=== PATIENT | female | born 1980 | race Caucasian/White ===

== ENCOUNTER → 2017-11-27 | Outpatient (CLI) | payer OTHER ==
[2015-06-22 09:33] VITALS: BMI 27.5
[~2017-11-27] MED LIST: ALBU8.5H IH; ALPR-434 PO; BENZ200C15 PO; CEFD300C35 PO; CODE118S5 PO; DICL100G39; DIPH-740 PO; EPIN1AMP IM; IBUP800T37 PO; LOR5/325 PO; ONDA-2 PO; OXYC-865 PO; PER PO; PRE5 PO; PRED20TA6 PO; SULF-198 PO; ZOLP-1 PO
--- NOTE | 2017-11-27 17:53 | RADIOLOGY IMAGING REPORT ---
[place]AC[place] [facility] [place] NAME: Farida Rayo : 1980 MR: [id number] V: [id number] EXAM DATE: ORDERING PHYSICIAN: TRINH RACSON TECHNOLOGIST: Location: [facility] Patient: Farida Rayo : 1980 Visit/Account:[id number] Date of Sevice: 11/27/2017 EXAMINATION: VENOUS DOPP LOW RIGHT EXTREMITY COMPARISON: None Available HISTORY: Right lower extremity pain. FINDINGS: Standard right lower extremity Doppler ultrasound with color flow and spectral analysis is performed. The common femoral, femoral, and popliteal veins are widely patent and compress appropriately. The v isualized calf veins and the proximal greater saphenous vein are patent. No popliteal fluid collection. IMPRESSION: No right lower extremity deep venous thrombosis. Report Dictated By: Will Eric MD at 11/27/2017 5:47 PM Report E-Signed By: Will Eric MD at 11/27/2017 5:49 PM WSN:[id number]
== END ==
LOC: US 16:35
PROVIDERS: ATTEND Nurse Practitioner Family
DX: M79.661 Pain in right lower leg (principal)

== ENCOUNTER 2018-02-07 18:35 | Emergency (ER) | payer OTHER ==
[2015-06-22 09:33] VITALS: Wt 88.0 kg
[2018-02-07] MEDS ORDERED: methylPREDNIS SUCC 125 MG/2ML IVP ONE (18:40)
[2018-02-07] MEDS ORDERED: NS(*) 0.9% 1000 ML BAG 1,000 ML IV ONE (18:40)
[2018-02-07] MEDS ORDERED: FAMOTIDINE(*) 20MG/50ML PREMIX 50 ML IVPB ONE (18:40)
[2018-02-07] MEDS ORDERED: diphenhydrAMINE 50 MG/ML VIAL IVP ONE (18:40)
--- NOTE | 2018-02-07 18:41 | ER Report ---
History and Physical Time Seen By MD: 18:38 HPI/ROS CHIEF COMPLAINT: allergic reaction HISTORY OF PRESENT ILLNESS: This is a 37 year old female. She has tree nut allergy. Ate some pine nuts without realizing these were nuts and has tightening in her throat and itchiness and redness in upper chest neck area. Has epinephrine pen, but has not used it, came early to try and avoid having to use it. Allergies: Coded Allergies: warfarin (Verified Allergy, Severe, RASH ALL OVER, 02/07/18) omeprazole (Verified Allergy, Intermediate, RASH, 02/07/18) metoclopramide (Verified Allergy, Mild, RASH, 02/07/18) pineapple (Verified Allergy, Mild, 02/07/18) tree nut (Verified Allergy, Unknown, 02/07/18) clindamycin (Verified Adverse Reaction, Severe, SEVERE STOMACH CRAMPS AND NAUSEA, 02/07/18) erythromycin base (Verified Adverse Reaction, Severe, STOMACH, NAUSEA AND VOMITING, 02/07/18) metronidazole (Verified Adverse Reaction, Severe, STOMACH CRAMPS AND NAUSEA, 02/07/18) adhesive (Verified Adverse Reaction, Mild, RASH IF IT IS ON TOO LONG, 02/07/18) Uncoded Allergies: CHEAP METALS (Adverse Reaction, Mild, RASH, 06/15/15) Home Meds Active Scripts Ibuprofen (IBUPROFEN) 800 Mg Tablet, 800 MG PO Q8H PRN for PAIN, #30 TAB 0 Refills Prov:YELENA DE LEON MD 06/22/15 Reported Medications Butalb/Acetaminophen/Caffeine (FIORICET 50-300-40) 1 Each Capsule, 1-2 EACH PO Q4H, CAPSULE 02/07/18 Zolpidem Tartrate (AMBIEN) 5 Mg Tablet, 1 TAB PO QHS, TAB 01/23/17 Alprazolam (XANAX) 1 Mg Tablet, 1 TAB PO QHS, TAB once or twice per month 06/15/15 Epinephrine HCl/Pf (Epinephrine 1 mg/ml Ampul) 1 Mg/1 Ml Ampul, 0.3 MG IM ONCE PRN for ALLERGY SYMPTOMS PRESCRIBED FOR NUT ALLERGY, EPI PEN, HAS NEVER HAD TO USE 06/15/15 Reviewed Nurses Notes: Yes Hx Smoking: No Smoking Status: Never Smoker Exposure to Second Hand Smoke?: No Hx Substance Use Disorder: No Hx Alcohol Use: No Constitutional Vital Sign - Last 24 Hours 02/07/18 02/07/18 02/07/18 02/07/18 18:35 18:42 18:45 18:50 Temp 98.3 Pulse ??? 87 91 Resp 16 B/P (MAP) 135/84 (101) 135/84 Pulse Ox 97 97 O2 Delivery Room Air 02/07/18 02/07/18 02/07/18 02/07/18 19:05 19:20 19:25 19:40 Pulse 76 76 77 ??? Pulse Ox 98 99 99 Intake and Output 02/07/18 02/07/18 02/08/18 15:00 23:00 07:00 Intake Total 1050 ml Balance 1050 ml Physical Exam General Appearance: The patient is alert, has no immediate need for airway protection and no current signs of toxicity. Eyes: Pupils equal and round no injection. ENT: Normal oral mucosa. Moist mucous membranes. Normal posterior oropharynx, without swelling. No tongue or lip swelling. Neck: Neck is supple and non tender. Respiratory: Chest is non tender, lungs are clear to auscultation. Cardiac: regular rate and rhythm Skin: Has some redness around the neck and chest area, no definitive hives. DIFFERENTIAL DIAGNOSIS: After history and physical exam differential diagnosis was considered for allergic reaction. Medical Decision Making ED Course/Re-evaluation Clinical Indication for ER IV: Hydration, IV Access ED Course Improved with IV medications (Solu-Medrol 125mg IV, Benadryl 25mg IV, and Pepcid 20mg IV) as well as a liter of normal saline. Prednisone 40mg oral dose given and see instructions below. Decision to Disposition Date: Feb 07, 2018 Decision to Disposition Time: 19:29 Depart Departure Latest Vital Signs Vital Signs Date Time Temp Pulse Resp B/P (MAP) Pulse Ox O2 Delivery O2 Flow Rate FiO2 02/07/18 19:40 ??? 02/07/18 19:25 99 02/07/18 18:45 98.3 16 135/84 Room Air Impression: Primary Impression: Allergic reaction Condition: Improved Disposition: HOME OR SELF-CARE Patient Instructions: General Allergic Reaction (ED) Additional Instructions: Take Prednisone 40mg tomorrow morning. Keep taking Benadryl 25mg 1-2 every 6 hours as needed. Return as needed for worsening allergic reaction symptoms. Problem Qualifiers Primary Impression: Allergic reaction Encounter type: initial encounter Qualified Codes: T78.40XA - Allergy, unspecified, initial encounter RACHEL NICHOLSON MD Feb 07, 2018 18:41
[2018-02-07 18:45] VITALS: BP 135/84
[2018-02-07] MEDS ORDERED: BUTA1CAP6 PO (18:45)
[2018-02-07] MEDS ORDERED: predniSONE 20 MG TAB PO ONE (19:30)
== END 2018-02-07 19:37 | disposition home or self-care (01) ==
LOC: ER 18:43
DX: T78.40XA Allergy, unspecified, initial encounter (principal)
CPT/HCPCS: 96361; 96365; 96375; 99284; J1200; J2930; J3490; J7030; J7512

== ENCOUNTER → 2018-04-17 | Outpatient (CLI) | payer OTHER ==
[2015-06-22 09:33] VITALS: BMI 27.5
[~2018-04-17] MED LIST changes: +BUTA1CAP6 PO; +LEVO50TA86 PO
== END ==
LOC: LAB 16:01
PROVIDERS: ATTEND Student in an Organized Health Care Education/Training Program
DX: E03.9 Hypothyroidism, unspecified (principal)
CPT/HCPCS: 36415; 84443